=== PATIENT | male | born 1975 | race Two or more races ===

== ENCOUNTER 2016-07-01 16:36 | Emergency (ER) | payer MEDICAID ==
[~2016-07-01] VITALS: Ht 167.6 cm; Wt 77.1 kg
[2016-07-01 17:38] LABS: Basophils # (auto) 0 uL; Basophils % (auto) 0.4 % (0.0-2.0); DEFINITIVE VIEW TRANSMISSION; Eosinophils # (auto) 0 uL; Eosinophils % (auto) 0.4 % (0.0-7.0); Hemoglobin 17.5 g/dL (13.5-17.5); Lymphocytes # (auto) 4.1 uL; Lymphocytes % (auto) 47.2 % (10.0-50.0); Mean Corpuscular Hgb Conc. 31.1 g/dL (32.0-36.0); Mean Corpuscular Volume 93.3 fL (80.0-100.0); Mean Platelet Volume 7.8 fL (7.4-10.4); Monocytes # (auto) 0.2 uL; Monocytes % (auto) 2.2 % (0.0-12.0); Neutrophils # (auto) 4.4 uL; Neutrophils % (auto) 49.8 % (37.0-80.0); Platelet Count (auto) 275 10^3/uL (140-450); Red Cell Distribution Width 13.3 % (11.6-16.0); White Blood Cell 8.8 10^3/uL (4.4-10.8)
[2016-07-01 17:51] LABS: Albumin 4.4 g/dL (3.4-5.0); BUN/Creatinine Ratio 8.3; Bilirubin, Total 0.2 mg/dL (0.2-1.0); Calcium 8.9 mg/dL (8.5-10.1); Potassium 3.7 mmol/L (3.5-5.1); Total Protein 9.2 g/dL (6.4-8.2)
[2016-07-01 18:06] LABS: Hematocrit 56.5 % (41.0-53.0)
[2016-07-01] MEDS: THIAMINE INJ 100 MG, MULTIPLE VITAMIN 10 ML, FOLIC ACID 1 MG, MAGNESIUM SULF SDV 50% 8 ... IV ONE ×5 (19:44)
[2016-07-01 19:54] LABS: Salicylate 1.8 mg/dL (2.8-20.0)
[2016-07-01 20:04] LABS: Acetaminophen < 2.0 ug/mL (10-30)
[2016-07-02 00:16] VITALS: BP 133/74
== END 2016-07-02 02:01 | disposition home or self-care (01) ==
LOC: EDUNIT# 16:36 → ER 16:43
DX: F10.129 Alcohol abuse with intoxication, unspecified (principal); G92 Toxic encephalopathy; F41.9 Anxiety disorder, unspecified; Z88.0 Allergy status to penicillin
CPT/HCPCS: 36415; 80053; 80320; 80329; 85025; 94761; 96365; 96366; 99285; G0434; J3411; J3475; J7030